=== PATIENT | female | born 1970 | race African-American/Black ===

== ENCOUNTER 2017-01-26 09:01 | Emergency (ER) | payer OTHER ==
[~2017-01-26] VITALS: Ht 162.6 cm; Wt 59.5 kg
[~2017-01-26 09:01] MED LIST: CLAR10TA13 PO; DUONI NEB; FLUT1SPR9; HIGHTAB3 PO
[2017-01-26 09:05] VITALS: BP 120/51; PULSE 58; RESP 20; TEMP 97.8; O2SAT 100
[2017-01-26] MEDS ORDERED: PRED20 PO (09:35)
[2017-01-26] MEDS ORDERED: ZITHTAB PO (09:37)
[2017-01-26] MEDS ORDERED: IBUPROFEN 800 MG TAB PO ONE (10:00)
--- NOTE | 2017-01-26 10:00 | PD ---
HPI Chief Complaint: Injury Time Seen by Provider: 09:59 Travel History International Travel<30 days: No Contact w/Intl Traveler<30days: No Traveled to known affect area: No History of Present Illness HPI 46-year-old female presents to the emergency department complaint of left foot and left ankle pain since yesterday after tripping over a weight bar on the floor. Reports edema. Denies paresthesias, loss of sensation to the affected extremity. Denies fever, vomiting. Has tried elevating and icing the affected extremity with no relief of symptoms. Is unable to ambulate on the affected extremity secondary to pain. Has not taken any medications to alleviate her symptoms. Allergies to codeine and Lortab. No other modifying factors or associated signs and symptoms. PFSH Past Medical History Anemia: Yes Asthma: Yes Diminished Hearing: No Respiratory: Yes (ASTHMA) Seizures: Yes (2 A CHILD) : 3 Para: 3 Past Surgical History Appendectomy: Yes Tonsillectomy: Yes (CHILDHOOD) Social History Alcohol Use: No Tobacco Use: Yes Substance Use: Yes (marijuana) Allergies-Medications (Allergen,Severity, Reaction): Coded Allergies: Codeine (Verified Allergy, Mild, SOB, SEIZURES, 01/26/17) PT DENIES Lortab (Verified Adverse Reaction, Intermediate, EMESIS, 01/26/17) PT DENIES Reported Meds & Prescriptions Reported Meds & Active Scripts Active Flonase Allergy Relief Ch (Fluticasone Propionate (Nasal)) 50 Mcg/Act Spr 2 [place] NA DAILY 28 Days Reported Zithromax Z-Raúl (Azithromycin) 250 Mg Dspk 250 Mg PO DIRECTED 500 MG (2 tabs) day 1, then 1 tab days 2-5. Prednisone 20 Mg Tab 20 Mg PO DIRECTED 40 MG twice a day x 3 days, then 20 MG daily x 3 days, then 10 MG daily x 3 days Ferrous Sulfate Tab 1 Tab PO TID Resp: Albuterol/Ipratropium 2.5 Mg/0.5 Mg (Albuterol/Ipratropium) 1 Amp Nebu 1 Ampule NEB Q4HR NEB PRN Review of Systems Except as stated in HPI: all other systems reviewed are Neg Physical Exam Narrative GENERAL: Well-nourished, well-developed female patient, in no acute distress SKIN: Warm and dry. HEAD: Atraumatic. Normocephalic. EYES: Pupils equal and round. No scleral icterus. No injection or drainage. ENT: Mucosa pink and moist. Airway patent. NECK: Trachea midline. CARDIOVASCULAR: Regular rate. RESPIRATORY: No accessory muscle use. GASTROINTESTINAL: Flat. MUSCULOSKELETAL: Left ankle with point tenderness to the midfoot zone with palpation; ankle is without erythema and is with mild edema; no obvious deformity. Dorsal aspect of left foot with edema and tenderness on palpation; no obvious deformity; without erythema, ecchymosis. Left lower extremity is supple and non-tense with 2+ pedal pulse and sensory intact. No obvious deformities. No clubbing. No cyanosis. No edema. NEUROLOGICAL: Awake and alert. Oriented 3. No obvious cranial nerve deficits. Motor grossly within normal limits. Normal speech. PSYCHIATRIC: Appropriate mood and affect; insight and judgment normal. Data Data Last Documented VS Vital Signs Date Time Temp Pulse Resp B/P Pulse Ox O2 Delivery O2 Flow Rate FiO2 01/26/17 09:05 97.8 58 20 120/51 100 Room Air Orders Ankle, Complete ([id number]) (01/26/17 09:50) Foot, Complete ([id number]) (01/26/17 09:50) Ice/Cold Pack (01/26/17 09:50) Ibuprofen (Motrin) (01/26/17 10:00) MDM Medical Decision Making Medical Screen Exam Complete: Yes Emergency Medical Condition: Yes Medical Record Reviewed: Yes Differential Diagnosis Foot contusion, foot fracture, ankle sprain, ankle fracture Narrative Course 46-year-old female with left foot and ankle injury. Left foot and left ankle x- ray ordered. Ibuprofen ordered. Ice pack ordered. 1056: Left ankle and left foot x-ray with no acute findings. Crutches, Fidel bandage and ankle stirrup splint provided for support. Ibuprofen prescribed for home. Patient verbalizes understanding and agreement with treatment plan. Patient is medically cleared and stable for discharge. Discussed reasons to return to the emergency department. Instructed patient to follow up with primary care provider. Patient agrees with treatment plan. The patients vital signs are stable and the patient is stable for outpatient follow-up and treatment. Patient discharged home, stable and in no acute distress. Diagnosis Primary Impression: Sprain of left foot Qualified Code: S93.602A - Sprain of left foot, initial encounter Additional Impression: Left ankle sprain Qualified Code: S93.402A - Sprain of left ankle, unspecified ligament, initial encounter Referrals: Primary Care Physician Patient Instructions: Ankle Sprain (ED), Foot Sprain (ED), General Instructions Departure Forms: Tests/Procedures, Work Release Enter return to work date: Feb 02, 2017 Additional Instructions: Ibuprofen or Tylenol as directed and as needed for pain and inflammation Rest, ice, compress, and elevate extremity to decrease pain and inflammation Ankle Brace for support Crutches for support Avoid aggravating activity; increase activity as tolerated Follow-up with primary care provider Return to the emergency department immediately with worsening symptoms Med/Other Pt SpecificInfo: Prescription(s) given Scripts Ibuprofen 800 Mg [id number] Mg PO Q6HR PRN (PAIN) #30 TAB Ref 0 Prov:Belgica Espana 01/26/17 Disposition: 01 DISCHARGE HOME Condition: Stable Belgica Espana Jan 26, 2017 10:00
--- NOTE | 2017-01-26 10:36 | RADRPT ---
EXAM DATE/TIME: 01/26/2017 10:10 [facility] COMPARISON: No previous studies available for comparison. INDICATIONS : Left foot pain after dropping weight on foot yesterday. MEDICAL HISTORY : Smoker. SURGICAL HISTORY : None. ENCOUNTER: Initial ACUITY: 2 days PAIN SCORE: 10/10 LOCATION: Left top of foot. FINDINGS: Three view examination of the left foot demonstrates no soft tissue swelling, dislocation, or fractur e. The tarsal bones appear intact. The interphalangeal and metatarsophalangeal joints are intact. The calcaneus is intact. Bony mineralization is normal. CONCLUSION: No acute disease. Jose A Seymour MD on January 26, 2017 at 10:32 Board Certified Radiologist. This report was verified electronically.
--- NOTE | 2017-01-26 10:45 | RADRPT ---
EXAM DATE/TIME: 01/26/2017 10:13 [facility] COMPARISON: No previous studies available for comparison. INDICATIONS : Left ankle pain after dropping a weight on foot yesterday. MEDICAL HISTORY : Smoker. SURGICAL HISTORY : None. ENCOUNTER: Initial ACUITY: 2 days PAIN SCORE: 10/10 LOCATION: Left top of foot. FINDINGS: Three view exam was performed of the left ankle. The bony structures are in normal alignment. No ev idence of fracture, dislocation, or soft tissue swelling. The ankle mortise is intact. No radiopaqu e foreign bodies are seen. Bony mineralization is normal. CONCLUSION: No acute disease. Jose A Seymour MD on January 26, 2017 at 10:42 Board Certified Radiologist. This report was verified electronically.
[2017-01-26] MEDS ORDERED: IBUP800T23 PO (10:59)
== END 2017-01-26 13:39 | disposition home or self-care (01) ==
LOC: NEPK 09:01
DX: S93.602A Unspecified sprain of left foot, initial encounter (principal); S93.402A Sprain of unspecified ligament of left ankle, initial encounter; F12.90 Cannabis use, unspecified, uncomplicated; W22.8XXA Striking against or struck by other objects, initial encounter; Z72.0 Tobacco use
CPT/HCPCS: 73610; 73630; 99283; E0113; L1906

== ENCOUNTER 2017-06-22 22:49 | Emergency (ER) | payer OTHER ==
[~2017-06-22] VITALS: Ht 167.6 cm; Wt 62.0 kg
[~2017-06-22 22:49] MED LIST changes: -CLAR10TA13 PO; +IBUP800T23 PO; +PRED20 PO; +ZITHTAB PO
[2017-06-22 22:50] VITALS: BP 144/70; PULSE 80; RESP 15; TEMP 99.2; O2SAT 97
[2017-06-22] MEDS ORDERED: DICL50TA3 PO (23:51)
--- NOTE | 2017-06-22 23:54 | PD ---
HPI Chief Complaint: Injury Time Seen by Provider: 23:40 Travel History International Travel<30 days: No Contact w/Intl Traveler<30days: No Traveled to known affect area: No History of Present Illness HPI 46-year-old black female presents to emergency Department with complaints of right great toenail pain. She states that she stubbed her foot on a sand bag lifting her toenail up. No other injuries. Pain is moderate. PFSH Past Medical History Anemia: Yes Asthma: Yes Diminished Hearing: No Respiratory: Yes (ASTHMA) Seizures: Yes (2 A CHILD) ?: Not LMP: 06/03/17 : 3 Para: 3 Past Surgical History Appendectomy: Yes Tonsillectomy: Yes (CHILDHOOD) Social History Alcohol Use: No Tobacco Use: Yes Substance Use: Yes (marijuana) Allergies-Medications (Allergen,Severity, Reaction): Coded Allergies: codeine (Unverified Allergy, Mild, SOB, SEIZURES, 06/22/17) PT DENIES acetaminophen (Unverified Adverse Reaction, Intermediate, EMESIS, 06/22/17) PT DENIES hydrocodone (Unverified Adverse Reaction, Intermediate, EMESIS, 06/22/17) PT DENIES Reported Meds & Prescriptions Reported Meds & Active Scripts Active Review of Systems Except as stated in HPI: all other systems reviewed are Neg Physical Exam Narrative GENERAL: This is a well-nourished, well-developed patient, in no apparent distress. SKIN: No rashes, ecchymoses or lesions. Warm and dry. HEAD: Atraumatic. Normocephalic. EYES: PERRL, EOMI, no discharge or injection. No scleral icterus. EARS: Clear NOSE: Nasal turbinates appear normal. THROAT: Mucosa pink and moist. Airway patent. NECK: Trachea midline. supple, moves head freely. LUNGS: Clear to auscultation. CV: Regular in rhythm. ABDOMEN: Soft nontender. EXT: No clubbing cyanosis or edema. Patient has elevation of the right great toenail at the distal end up off the nailbed. The base of the nail is intact. There is no signs of any deep injury. Data Data Last Documented VS Vital Signs Date Time Temp Pulse Resp B/P (MAP) Pulse Ox O2 Delivery O2 Flow Rate FiO2 06/22/17 23:06 (94) 06/22/17 22:50 99.2 80 15 97 Orders Orders Naproxen (Naprosyn) (06/23/17 00:00) MDM Medical Decision Making Medical Screen Exam Complete: Yes Emergency Medical Condition: Yes Medical Record Reviewed: Yes Differential Diagnosis MDM: High Differential diagnoses: Fracture, sprain, strain, dislocation, contusion, neurovascular injury Narrative Course The patient is given the option of placing a dressing on top of the nail versus removing the nail completely. The patient has opted not to have her nail removed and let it fall off naturally. Patient's given Naprosyn 500 mg by mouth. Dressing applied. This is right great toenail partial avulsion Diagnosis Primary Impression: right great toenail partial avulsion Patient Instructions: General Instructions Additional Instructions: Rest. Elevation. Soak in Epsom salts twice daily. Keep a Band-Aid across the nail to hold it down for the next 2 weeks. Diclofenac for pain. Follow-up with a medical doctor or a fire sprinkler fitter in 1 week Med/Other Pt SpecificInfo: Prescription(s) given Scripts Diclofenac Sodium (Diclofenac Sodium DR) 50 Mg Tabdr 50 MG PO TID, #21 TAB 0 Refills Prov: Deja Mejia MD 06/22/17 Disposition: 01 DISCHARGE HOME Condition: Stable Gil Luis Jun 22, 2017 23:54
[2017-06-23] MEDS ORDERED: NAPROXEN 500 MG TAB PO ONE
== END 2017-06-23 00:21 | disposition home or self-care (01) ==
LOC: NEPD 22:49
DX: S91.201A Unspecified open wound of right great toe with damage to nail, initial encounter (principal); D64.9 Anemia, unspecified; J45.909 Unspecified asthma, uncomplicated; W22.8XXA Striking against or struck by other objects, initial encounter; Z72.0 Tobacco use; Z88.5 Allergy status to narcotic agent; Z88.6 Allergy status to analgesic agent
CPT/HCPCS: 99283

== ENCOUNTER 2017-09-29 14:28 | Emergency (ER) | payer OTHER ==
[~2017-09-29 14:28] MED LIST changes: +DICL50TA3 PO; -DUONI NEB; -FLUT1SPR9; -HIGHTAB3 PO; -IBUP800T23 PO; -PRED20 PO; -ZITHTAB PO
[2017-09-29 14:29] VITALS: BP 120/74; PULSE 84; RESP 18; TEMP 99.3; O2SAT 98
[2017-09-29] MEDS ORDERED: IOHEXOL 350 MG/ML 10 ML VIAL (for RAD DIAG) IVCONTRAST ONE (14:29)
[2017-09-29] MEDS ORDERED: LYRI50CA PO (14:56)
[2017-09-29] MEDS ORDERED: SODIUM CHLOR 0.9% 1000 ML INJ 1,000 ML IV SCH (15:10)
[2017-09-29] MEDS ORDERED: ONDANSETRON HCL 4 MG/2 ML VIAL IVP ONE (15:15)
[2017-09-29] MEDS ORDERED: SODIUM CHLORIDE 0.9% FLUSH 10 ML FLUSH IV FLUSH PRN (15:15)
[2017-09-29] MEDS ORDERED: KETOROLAC TROMETHAMINE 30 MG/ML (IVP) VIAL IVP ONE (15:15)
[2017-09-29 15:20] VITALS: RESP 16; O2SAT 98
--- NOTE | 2017-09-29 15:20 | PD ---
HPI Chief Complaint: Cold / Flu Symptoms Time Seen by Provider: 14:40 Travel History International Travel<30 days: No Contact w/Intl Traveler<30days: No Traveled to known affect area: No History of Present Illness HPI 46-year-old female presents emergency department complaint of mid abdominal pain , low back pain, vomiting, diarrhea, subjective fever since this morning. Denies injury. Denies encopresis, incontinence, saddle anesthesias. Denies IV drug use or cancer. Denies paresthesias, loss of sensation, decreased range motion, decreased strength to all extremities. Reports feeling weak and tired. Denies nasal congestion, sore throat, ear pain, cough. Denies dysuria, hematuria, hematochezia. Denies chest pain, shortness of breath. No known relieving or aggravating factors. Has not taken any medications or tried any treatments to alleviate her symptoms. History of fibroidectomy. History of asthma and anemia. Allergies to codeine. Does not know her primary care provider's name. PFSH Past Medical History Anemia: Yes Asthma: Yes Diminished Hearing: No Respiratory: Yes (ASTHMA) Immunizations Current: Yes Seizures: Yes (2 A CHILD) Tetanus Vaccination: > 5 Years Influenza Vaccination: Yes ?: Not LMP: 09/25/17 : 3 Para: 3 Past Surgical History Appendectomy: Yes Tonsillectomy: Yes (CHILDHOOD) Social History Alcohol Use: No Tobacco Use: Yes Substance Use: Yes (marijuana) Allergies-Medications (Allergen,Severity, Reaction): Coded Allergies: codeine (Verified Allergy, Mild, SOB, SEIZURES, 09/29/17) acetaminophen (Verified Adverse Reaction, Intermediate, EMESIS, 09/29/17) hydrocodone (Verified Adverse Reaction, Intermediate, EMESIS, 09/29/17) Reported Meds & Prescriptions Reported Meds & Active Scripts Active Zofran Odt (Ondansetron Odt) 8 Mg Tab 8 Mg SL Q8H PRN Levsin-SL (Hyoscyamine Sulfate) 0.125 Mg Subl 0.25 Mg SL Q6H Macrobid (Nitrofurantoin Monoh/Nitrofur Macro) 100 Mg Cap 100 Mg PO BID Reported Lyrica (Pregabalin) 50 Mg Cap 50 Mg PO TID Review of Systems Except as stated in HPI: all other systems reviewed are Neg Physical Exam Narrative GENERAL: Well-nourished, well-developed thin black female patient, in no acute distress; afebrile SKIN: Warm and dry. HEAD: Atraumatic. Normocephalic. EYES: Pupils equal and round. No scleral icterus. No injection or drainage. ENT: Mucosa pink and moist. Airway patent. NECK: Trachea midline. CARDIOVASCULAR: Regular rate and rhythm. No murmur appreciated. RESPIRATORY: No accessory muscle use. Clear to auscultation. Breath sounds equal bilaterally. GASTROINTESTINAL: Abdomen soft, unable to determine where abdominal pain is because her pain is out of proportion on physical exam, nondistended. Hepatic and splenic margins not palpable. Bowel sounds are active 4 quadrants. Patient Guarding. BACK: Unable to determine if patient has CVA tenderness because her pain is out of proportion to physical exam. MUSCULOSKELETAL: Bilateral lower extremities supple and non-tense with 2+ pedal pulses and sensory intact; with full range of motion and 5/5 strength. Active dorsiflexion and extension of bilateral feet. Bilateral straight leg raise is negative for low back pain. Ambulatory in room with normal gait. Sitting up in bed at 90. No obvious deformities. No clubbing. No cyanosis. No edema. BACK: No midline point tenderness on palpation of the lumbar spine. No obvious deformities. NEUROLOGICAL: Awake and alert. Oriented 3. No obvious cranial nerve deficits. Motor grossly within normal limits. Normal speech. PSYCHIATRIC: Appropriate mood and affect; insight and judgment normal. Data Data Last Documented VS Vital Signs Date Time Temp Pulse Resp B/P (MAP) Pulse Ox O2 Delivery O2 Flow Rate FiO2 09/29/17 21:25 09/29/17 19:07 78 14 98 Room Air 09/29/17 16:00 97.8 Orders Orders Complete Blood Count With Diff (09/29/17 15:10) Comprehensive Metabolic Panel (09/29/17 15:10) Lipase (09/29/17 15:10) Urinalysis - C+S If Indicated (09/29/17 15:10) Ct Abd/Pel W Iv Contrast(Rout) (09/29/17 15:10) Iv Access Insert/Monitor (09/29/17 15:10) Ecg Monitoring (09/29/17 15:10) Oximetry (09/29/17 15:10) Ondansetron Inj (Zofran Inj) (09/29/17 15:15) Sodium Chlor 0.9% 1000 Ml Inj (Ns 1000 M (09/29/17 15:10) Sodium Chloride 0.9% Flush (Ns Flush) (09/29/17 15:15) Ketorolac Inj (Toradol Inj) (09/29/17 15:15) Ed Urine Pregnancytest Poc (09/29/17 15:10) Influenzae A/B Antigen (09/29/17 15:20) Urine Culture (09/29/17 15:40) Ceftriaxone Inj (Rocephin Inj) (09/29/17 16:45) Iohexol 350 Inj (Omnipaque 350 Inj) (09/29/17 14:29) Sodium Chlor 0.9% 1000 Ml Inj (Ns 1000 M (09/29/17 19:30) Prochlorperazine Inj (Compazine Inj) (09/29/17 19:30) Diphenhydramine Inj (Benadryl Inj) (09/29/17 19:30) Ed Discharge Order (09/29/17 20:41) Labs Laboratory Tests Test 09/29/17 15:20 09/29/17 15:40 White Blood Count 6.1 TH/MM3 Red Blood Count 4.90 MIL/MM3 Hemoglobin 10.5 GM/DL Hematocrit 33.7 % Mean Corpuscular Volume 68.7 FL Mean Corpuscular Hemoglobin 21.5 PG Mean Corpuscular Hemoglobin Concent 31.3 % Red Cell Distribution Width 19.3 % Platelet Count 224 TH/MM3 Mean Platelet Volume 9.5 FL Neutrophils (%) (Auto) 87.0 % Lymphocytes (%) (Auto) 7.3 % Monocytes (%) (Auto) 5.5 % Eosinophils (%) (Auto) 0.1 % Basophils (%) (Auto) 0.1 % Neutrophils # (Auto) 5.3 TH/MM3 Lymphocytes # (Auto) 0.5 TH/MM3 Monocytes # (Auto) 0.3 TH/MM3 Eosinophils # (Auto) 0.0 TH/MM3 Basophils # (Auto) 0.0 TH/MM3 CBC Comment DIFF FINAL Differential Comment Blood Urea Nitrogen 12 MG/DL Creatinine 0.58 MG/DL Random Glucose 90 MG/DL Total Protein 8.6 GM/DL Albumin 3.7 GM/DL Calcium Level 8.6 MG/DL Alkaline Phosphatase 80 U/L Aspartate Amino Transf (AST/SGOT) 9 U/L Alanine Aminotransferase (ALT/SGPT) 12 U/L Total Bilirubin 0.6 MG/DL Sodium Level 137 MEQ/L Potassium Level 3.3 MEQ/L Chloride Level 107 MEQ/L Carbon Dioxide Level 23.5 MEQ/L Anion Gap 7 MEQ/L Estimat Glomerular Filtration Rate 135 ML/MIN Lipase 61 U/L Urine Color YELLOW Urine Turbidity HAZY Urine pH 5.5 Urine Specific [place] 1.024 Urine Protein TRACE mg/dL Urine Glucose (UA) NEG mg/dL Urine Ketones 80 mg/dL Urine Occult Blood MOD Urine Nitrite POS Urine Bilirubin NEG Urine Urobilinogen LESS THAN 2.0 MG/DL Urine Leukocyte Esterase SMALL Urine RBC 3 /hpf Urine WBC 4 /hpf Urine Squamous Epithelial Cells 8 /hpf Urine Bacteria MANY /hpf Urine Mucus FEW /lpf Microscopic Urinalysis Comment CULTURE INDICATED MDM Medical Decision Making Medical Screen Exam Complete: Yes Emergency Medical Condition: Yes Medical Record Reviewed: Yes Differential Diagnosis Gastroenteritis, gastritis, pyelonephritis, UTI, influenza Narrative Course 46-year-old female with abdominal pain and low back pain since this morning. Denies injury. She's been having nausea, vomiting and diarrhea also. Patient has low-grade fever of 99.3 in the ER. Reports subjective fevers at home. Patient's pain is out of proportion on physical exam. I am unable to determine where her abdominal pain is. He has no midline tenderness on palpation of the lumbar spine. Denies IV drug use or cancer. Denies encopresis, incontinence, saddle anesthesias. Neuro exam is unremarkable. IV site, normal saline bolus, Zofran, Toradol, CT abdomen/pelvis, urinalysis, UPT, influenza ordered. 1635: CBC with anemia. She has history of anemia. Urinalysis with signs of infection; reflex to culture. Rocephin ordered. 165: Potassium 3.3. Lipase 61. Otherwise CMP unremarkable. Influenza negative 1855: CT abdomen/pelvis concludes: 1.Probable calcified uterine fibroids, the larger which measures 4.0 cm. 2. Probable endometrial thickening. 3. Mildly dilated proximal small bowel loops suggesting ileus. 1899: Randy Luis PA-C assumed patient care at this time. Report given at change of shift. See his note for final patient disposition. Diagnosis Primary Impression: UTI (urinary tract infection) Qualified Codes: N39.0 - Urinary tract infection, site not specified Additional Impression: Ileus Scripts Ondansetron Odt (Zofran Odt) 8 Mg Tab 8 MG SL Q8H Y for NAUSEA OR VOMITING, #6 TAB 0 Refills Prov: Vikram Gupta MD 09/29/17 Hyoscyamine Odt (Levsin-SL) 0.125 Mg Subl 0.25 MG SL Q6H for Gastrointestinal disorders, #20 TAB.SL 0 Refills Prov: Vikram Gupta MD 09/29/17 Nitrofurantoin Monohydrate Macrocrystals (Macrobid) 100 Mg Cap 100 MG PO BID for Infection, #20 CAP 0 Refills Prov: Vikram Gupta MD 09/29/17 [place] E[place] Sep 29, 2017 15:20
[2017-09-29 16:00] VITALS: BP 124/81; PULSE 81; RESP 16; TEMP 97.8; O2SAT 99
[2017-09-29 16:25] LABS: BACTERIA, URINE MANY /hpf; BILIRUBIN, URINE NEG (NEG); BLOOD, URINE MOD (NEG); GLUCOSE,URINE NEG (NEG); KETONE, URINE 80 mg/dL (NEG); MUCUS URINE FEW /lpf (OCC); NITRITE,URINE POS (NEG); PH, URINE 5.5 (5.0-8.5); SQUAMOUS EPITHELIAL CELL URINE 8 /hpf (0-5); URINE COLOR YELLOW (YELLW/STRAW); URINE LEUKOCYTE ESTERASE SMALL (NEG)
[2017-09-29 16:25] LABS: AUTOMATED NEUTROPHIL # 5.3 TH/MM3 (1.8-7.7); BASOPHIL % 0.1 % (0.0-2.0); EOSINOPHIL % 0.1 % (0.0-4.0); HEMATOCRIT 33.7 % (35.0-46.0); HEMOGLOBIN 10.5 GM/DL (11.6-15.3); LYMPH % 7.3 % (9.0-44.0); LYMPHOCYTE # 0.5 TH/MM3 (1.0-4.8); MEAN CELL VOLUME 68.7 FL (80.0-100.0); MEAN CORPUSCULAR HEMOGLOBIN 21.5 PG (27.0-34.0); MEAN CORPUSCULAR HGB CONC 31.3 % (32.0-36.0); MEAN PLATELET VOLUME 9.5 FL (7.0-11.0); MONO % 5.5 % (0.0-8.0); MONOCYTE # 0.3 TH/MM3 (0-0.9); PLATELET COUNT 224 TH/MM3 (150-450); RED CELL DISTRIBUTION WIDTH 19.3 % (11.6-17.2); WHITE BLOOD COUNT 6.1 TH/MM3 (4.0-11.0)
[2017-09-29] MEDS ORDERED: cefTRIAXone INJ 1,000 MG in SODIUM CHLORIDE 0.9% INJ 100 ML IV ONE (16:45)
[2017-09-29 16:50] LABS: ALBUMIN 3.7 GM/DL (3.4-5.0); ALT (GPT) 12 U/L (10-53); AST (GOT) 9 U/L (15-37); BICARBONATE 23.5 MEQ/L (21.0-32.0); BLOOD UREA NITROGEN 12 MG/DL (7-18); CALCIUM 8.6 MG/DL (8.5-10.1); CHLORIDE 107 MEQ/L (98-107); CREATININE 0.58 MG/DL (0.50-1.00); GLOMERULAR FILTRATION RATE 135 ML/MIN (>89); GLUCOSE,RANDOM 90 MG/DL (74-106); LIPASE 61 U/L (73-393); SODIUM (NA) 137 MEQ/L (136-145)
[2017-09-29 16:52] LABS: ALKALINE PHOSPHATASE 80 U/L (45-117); TOTAL BILIRUBIN ADULT 0.6 MG/DL (0.2-1.0); TOTAL PROTEIN 8.6 GM/DL (6.4-8.2)
--- NOTE | 2017-09-29 18:28 | RADRPT ---
EXAM DATE/TIME: 09/29/2017 18:00 [facility] COMPARISON: No previous studies available for comparison. INDICATIONS : Patient complains of abdominal pain, fever, nausea and vomiting. IV CONTRAST: 94 cc Omnipaque 350 (iohexol) IV ORAL CONTRAST: No oral contrast ingested. RADIATION DOSE: 7.47 CTDIvol (mGy) MEDICAL HISTORY : Seizures. SURGICAL HISTORY : Appendectomy. ENCOUNTER: Initial ACUITY: 1 day PAIN SCALE: 10/10 LOCATION: abdomen TECHNIQUE: Volumetric scanning of the abdomen and pelvis was performed. Using automated exposure control and ad justment of the mA and/or kV according to patient size, radiation dose was kept as low as reasonably achievable to obtain optimal diagnostic quality images. DICOM format image data is available electro nically for review and comparison. FINDINGS: LOWER LUNGS: The visualized lower lungs are clear. LIVER: Homogeneous density without lesion. There is no dilation of the biliary tree. No calcified gallston es. SPLEEN: Normal size without lesion. PANCREAS: Within normal limits. KIDNEYS: Normal in size and shape. There is no mass, stone or hydronephrosis. ADRENAL GLANDS: Within normal limits. VASCULAR: There is no aortic aneurysm. BOWEL/MESENTERY: There are mildly dilated loops of proximal small bowel measuring up to 3.1 cm. Mid and distal small bowel and colon are not distended. No transition in diameter identified. ABDOMINAL WALL: Within normal limits. RETROPERITONEUM: There is no lymphadenopathy. BLADDER: No wall thickening or mass. REPRODUCTIVE: The endometrium is prominent. There are 2 calcified lesions adjacent to the uterus, exophytic from t he superior fundus measuring 1.8 cm and along the right lower uterine segment measuring 4.0 cm. The calcification is peripheral and suggests exophytic uterine fibroids. No free fluid in the cul-de-sac . Mild amount of free fluid in the left adnexa. INGUINAL: There is no lymphadenopathy or hernia. MUSCULOSKELETAL: Within normal limits for patient age. CONCLUSION: 1. Probable calcified uterine fibroids, the larger which measures 4.0 cm. 2. Probable endometrial thickening. 3. Mildly dilated proximal small bowel loops suggesting ileus. Tom Vilchis MD on September 29, 2017 at 18:22 Board Certified Radiologist. This report was verified electronically.
[2017-09-29 19:06] VITALS: BP 112/55; PULSE 78; RESP 16; O2SAT 98
[2017-09-29] MEDS ORDERED: PROCHLORPERAZINE INJ 10 MG/2 ML VIAL IV PUSH ONE (19:30)
[2017-09-29] MEDS ORDERED: diphenhydrAMINE HCL 50 MG/ML VIAL IV PUSH ONE (19:30)
[2017-09-29] MEDS ORDERED: SODIUM CHLOR 0.9% 1000 ML INJ 1,000 ML IV ONE (19:30)
--- NOTE | 2017-09-29 20:34 | PD ---
Physical Exam Date Seen by Provider: Sep 29, 2017 Time Seen by Provider: 20:30 Narrative GENERAL: This is a well-nourished, well-developed patient, in no apparent distress. SKIN: No rashes, ecchymoses or lesions. Warm and dry. HEAD: Atraumatic. Normocephalic. EYES: PERRL, EOMI, no discharge or injection. No scleral icterus. EARS: Clear NOSE: Nasal turbinates appear normal. THROAT: Mucosa pink and moist. Airway patent. NECK: Trachea midline. supple, moves head freely. LUNGS: Clear to auscultation. CV: Regular in rhythm. ABDOMEN: Soft, diffuse mild abdominal discomfort to deep palpation. No guarding or rebound. EXT: No clubbing cyanosis or edema. Data Data Last Documented VS Vital Signs Date Time Temp Pulse Resp B/P (MAP) Pulse Ox O2 Delivery O2 Flow Rate FiO2 09/29/17 19:07 78 14 98 Room Air 09/29/17 19:06 112/55 (74) 09/29/17 16:00 97.8 Orders Orders Complete Blood Count With Diff (09/29/17 15:10) Comprehensive Metabolic Panel (09/29/17 15:10) Lipase (09/29/17 15:10) Urinalysis - C+S If Indicated (09/29/17 15:10) Ct Abd/Pel W Iv Contrast(Rout) (09/29/17 15:10) Iv Access Insert/Monitor (09/29/17 15:10) Ecg Monitoring (09/29/17 15:10) Oximetry (09/29/17 15:10) Ondansetron Inj (Zofran Inj) (09/29/17 15:15) Sodium Chlor 0.9% 1000 Ml Inj (Ns 1000 M (09/29/17 15:10) Sodium Chloride 0.9% Flush (Ns Flush) (09/29/17 15:15) Ketorolac Inj (Toradol Inj) (09/29/17 15:15) Ed Urine Pregnancytest Poc (09/29/17 15:10) Influenzae A/B Antigen (09/29/17 15:20) Urine Culture (09/29/17 15:40) Ceftriaxone Inj (Rocephin Inj) (09/29/17 16:45) Iohexol 350 Inj (Omnipaque 350 Inj) (09/29/17 14:29) Sodium Chlor 0.9% 1000 Ml Inj (Ns 1000 M (09/29/17 19:30) Prochlorperazine Inj (Compazine Inj) (09/29/17 19:30) Diphenhydramine Inj (Benadryl Inj) (09/29/17 19:30) Labs Laboratory Tests Test 09/29/17 15:20 09/29/17 15:40 White Blood Count 6.1 TH/MM3 Red Blood Count 4.90 MIL/MM3 Hemoglobin 10.5 GM/DL Hematocrit 33.7 % Mean Corpuscular Volume 68.7 FL Mean Corpuscular Hemoglobin 21.5 PG Mean Corpuscular Hemoglobin Concent 31.3 % Red Cell Distribution Width 19.3 % Platelet Count 224 TH/MM3 Mean Platelet Volume 9.5 FL Neutrophils (%) (Auto) 87.0 % Lymphocytes (%) (Auto) 7.3 % Monocytes (%) (Auto) 5.5 % Eosinophils (%) (Auto) 0.1 % Basophils (%) (Auto) 0.1 % Neutrophils # (Auto) 5.3 TH/MM3 Lymphocytes # (Auto) 0.5 TH/MM3 Monocytes # (Auto) 0.3 TH/MM3 Eosinophils # (Auto) 0.0 TH/MM3 Basophils # (Auto) 0.0 TH/MM3 CBC Comment DIFF FINAL Differential Comment Blood Urea Nitrogen 12 MG/DL Creatinine 0.58 MG/DL Random Glucose 90 MG/DL Total Protein 8.6 GM/DL Albumin 3.7 GM/DL Calcium Level 8.6 MG/DL Alkaline Phosphatase 80 U/L Aspartate Amino Transf (AST/SGOT) 9 U/L Alanine Aminotransferase (ALT/SGPT) 12 U/L Total Bilirubin 0.6 MG/DL Sodium Level 137 MEQ/L Potassium Level 3.3 MEQ/L Chloride Level 107 MEQ/L Carbon Dioxide Level 23.5 MEQ/L Anion Gap 7 MEQ/L Estimat Glomerular Filtration Rate 135 ML/MIN Lipase 61 U/L Urine Color YELLOW Urine Turbidity HAZY Urine pH 5.5 Urine Specific [place] 1.024 Urine Protein TRACE mg/dL Urine Glucose (UA) NEG mg/dL Urine Ketones 80 mg/dL Urine Occult Blood MOD Urine Nitrite POS Urine Bilirubin NEG Urine Urobilinogen LESS THAN 2.0 MG/DL Urine Leukocyte Esterase SMALL Urine RBC 3 /hpf Urine WBC 4 /hpf Urine Squamous Epithelial Cells 8 /hpf Urine Bacteria MANY /hpf Urine Mucus FEW /lpf Microscopic Urinalysis Comment CULTURE INDICATED MDM Medical Record Reviewed: Yes Supervised Visit with PATRICK: Yes Interpretation(s) CT of the abdomen and pelvis: Negative for appendicitis. Positive ileus. Laboratory Tests Test 09/29/17 15:20 09/29/17 15:40 White Blood Count 6.1 TH/MM3 Red Blood Count 4.90 MIL/MM3 Hemoglobin 10.5 GM/DL Hematocrit 33.7 % Mean Corpuscular Volume 68.7 FL Mean Corpuscular Hemoglobin 21.5 PG Mean Corpuscular Hemoglobin Concent 31.3 % Red Cell Distribution Width 19.3 % Platelet Count 224 TH/MM3 Mean Platelet Volume 9.5 FL Neutrophils (%) (Auto) 87.0 % Lymphocytes (%) (Auto) 7.3 % Monocytes (%) (Auto) 5.5 % Eosinophils (%) (Auto) 0.1 % Basophils (%) (Auto) 0.1 % Neutrophils # (Auto) 5.3 TH/MM3 Lymphocytes # (Auto) 0.5 TH/MM3 Monocytes # (Auto) 0.3 TH/MM3 Eosinophils # (Auto) 0.0 TH/MM3 Basophils # (Auto) 0.0 TH/MM3 CBC Comment DIFF FINAL Differential Comment Blood Urea Nitrogen 12 MG/DL Creatinine 0.58 MG/DL Random Glucose 90 MG/DL Total Protein 8.6 GM/DL Albumin 3.7 GM/DL Calcium Level 8.6 MG/DL Alkaline Phosphatase 80 U/L Aspartate Amino Transf (AST/SGOT) 9 U/L Alanine Aminotransferase (ALT/SGPT) 12 U/L Total Bilirubin 0.6 MG/DL Sodium Level 137 MEQ/L Potassium Level 3.3 MEQ/L Chloride Level 107 MEQ/L Carbon Dioxide Level 23.5 MEQ/L Anion Gap 7 MEQ/L Estimat Glomerular Filtration Rate 135 ML/MIN Lipase 61 U/L Urine Color YELLOW Urine Turbidity HAZY Urine pH 5.5 Urine Specific [place] 1.024 Urine Protein TRACE mg/dL Urine Glucose (UA) NEG mg/dL Urine Ketones 80 mg/dL Urine Occult Blood MOD Urine Nitrite POS Urine Bilirubin NEG Urine Urobilinogen LESS THAN 2.0 MG/DL Urine Leukocyte Esterase SMALL Urine RBC 3 /hpf Urine WBC 4 /hpf Urine Squamous Epithelial Cells 8 /hpf Urine Bacteria MANY /hpf Urine Mucus FEW /lpf Microscopic Urinalysis Comment CULTURE INDICATED Differential Diagnosis Differential diagnoses: SBO, ileus, gastroenteritis, vomiting, diarrhea, UTI Narrative Course IV access is obtained. Patient's given a total 2 L of normal saline. She was initially given Zofran 4 mg IV. This was followed by Benadryl 50 mg IV, Compazine 10 mg IV, and 2 Levsin subungual. Patient has had significant improvement of her discomfort. She is now taking by mouth fluids without vomiting. I discussed with the patient liquids for the next 12-24 hours and medicine for nausea and vomiting. Patient agrees with treatment plan of follow-up. At this time do not believe that the patient is requiring admission at this time. She can be followed closely as an outpatient. This is abdominal pain, ileus, UTI Diagnosis Primary Impression: UTI (urinary tract infection) Qualified Codes: N39.0 - Urinary tract infection, site not specified Additional Impressions: Ileus abdominal pain Patient Instructions: General Instructions Departure Forms: Tests/Procedures, Work Release Special Instructions: No work 2 days. Additional Instruction: Rest. Increase fluids. Clear liquids for the next 12-24 hours. Zofran for nausea. Levsin for abdominal cramping and diarrhea. Recheck in 24 hours with your primary care doctor or the ER. Return to the ER sooner if any problems. Med/Other Pt SpecificInfo: Prescription(s) given Disposition: 01 DISCHARGE HOME Condition: Stable Gil Luis Sep 29, 2017 20:34
[2017-09-29] MEDS ORDERED: ZOFR8TAB4 SL (20:36)
[2017-09-29] MEDS ORDERED: MACR100C2 PO (20:36)
[2017-09-29] MEDS ORDERED: LEVS0.124 SL (20:36)
== END 2017-09-29 21:26 | disposition home or self-care (01) ==
LOC: NEPD 14:28
DX: N39.0 Urinary tract infection, site not specified (principal); B96.20 Unspecified Escherichia coli [E. coli] as the cause of diseases classified elsewhere; K56.7 Ileus, unspecified; D64.9 Anemia, unspecified; Z72.0 Tobacco use
CPT/HCPCS: 74177; 80053; 81001; 83690; 84703; 85025; 87077; 87086; 87186; 87804; 96361; 96365; 96375; 99285; J0696; J0780; J1200; J1885; J2405; J7030; Q9967

== ENCOUNTER 2018-06-25 09:37 | Inpatient (IN) ==
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
[2018-06-25] MEDS ORDERED: Orphenadrine Inj 60 MG/2 ML Ampul IM ONE (13:12)
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
[2018-06-25] MEDS ORDERED: Morphine Inj 4 MG/ML Vial IM ONE (15:47)
[2018-06-25] MEDS ORDERED: Morphine Inj 4 MG/ML Vial IV.PUSH ONE (15:54)
[2018-06-25 16:29] LABS: Baso % (Auto) 0.6 % (0.0-2.0); Eos % (Auto) 0.6 % (0.0-4.0); Hematocrit 32.6 % (35.0-46.0); Hemoglobin 10.3 gm/dL (11.6-15.3); Lymph # (Auto) 1.6 th/mm3 (1.0-4.8); Lymph % (Auto) 36.2 % (9.0-44.0); Mean Corpuscular HGB Conc 31.6 % (32.0-36.0); Mean Corpuscular Hemoglobin 23.7 pg (27.0-34.0); Mean Platelet Volume 9.3 fL (7.0-11.0); Mono # (Auto) 0.5 th/mm3 (0.0-0.9); Mono % (Auto) 11.8 % (0.0-8.0); Neut # (Auto) 2.3 th/mm3 (1.8-7.7); Neut % (Auto) 50.8 % (16.0-70.0); Platelet Count 210 th/mm3 (150-450); Red Blood Count 4.35 mil/mm3 (4.00-5.30); Red Cell Distribution Width 17.8 % (11.6-17.2); White Blood Count 4.5 th/mm3 (4.0-11.0)
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
[2018-06-25 16:40] LABS: Activated Partial Thrombo Time 23.8 sec (24.3-30.1); Prothrombin Time 9.9 sec (9.8-11.6)
[2018-06-25 16:58] LABS: Alkaline Phosphatase 87 U/L (45-117); Total Protein 7.7 g/dL (6.4-8.2)
[2018-06-25 16:59] LABS: Alanine Aminotransferase 14 U/L (10-53); Albumin 3.2 g/dL (3.4-5.0); Anion Gap 6 meq/L (5-15); Aspartate Aminotransferase 17 U/L (15-37); Blood Urea Nitrogen 13 mg/dL (7-18); Calcium 8.3 mg/dL (8.5-10.1); Carbon Dioxide 26.9 meq/L (21.0-32.0); Chloride 109 meq/L (98-107); Glomerular Filtration Rate Greater Than 89 mL/min (>89); Glucose,Random 85 mg/dL (74-106); Potassium 3.4 meq/L (3.5-5.1); Sodium 142 meq/L (136-145)
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
[2018-06-25] MEDS ORDERED: Morphine Sulfate Inj 2 MG/ML Vial IV.PUSH PRN (19:22)
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
[2018-06-25] MEDS ORDERED: Docusate Sodium 100 MG Capsule PO SCH (21:00)
[2018-06-25] MEDS: Ketorolac Inj 30 MG/ML (IVP) Vial IV.PUSH SCH (21:05)
[2018-06-26] MEDS: Ketorolac Inj 30 MG/ML (IVP) Vial IV.PUSH SCH ×2 (03:16→08:06)
[2018-06-26] MEDS ORDERED: Chlorhexidine Gluconate 2% 1 Pack (2 Cloths) TOPICAL SCH (04:00)
[2018-06-26] MEDS ORDERED: Chlorhexidine Gluconate 2% 1 Pack (2 Cloths) TOPICAL PRN (04:00)
[2018-06-26 05:35] LABS: Baso % (Auto) 1.4 % (0.0-2.0); Eos % (Auto) 1.2 % (0.0-4.0); Hematocrit 30.1 % (35.0-46.0); Hemoglobin 9.6 gm/dL (11.6-15.3); Lymph # (Auto) 1.5 th/mm3 (1.0-4.8); Lymph % (Auto) 43.4 % (9.0-44.0); Mean Corpuscular Hemoglobin 23.6 pg (27.0-34.0); Mean Corpuscular Volume 73.9 fL (80.0-100.0); Mean Platelet Volume 9.5 fL (7.0-11.0); Mono # (Auto) 0.5 th/mm3 (0.0-0.9); Mono % (Auto) 12.7 % (0.0-8.0); Neut # (Auto) 1.5 th/mm3 (1.8-7.7); Neut % (Auto) 41.3 % (16.0-70.0); Platelet Count 190 th/mm3 (150-450); Red Blood Count 4.08 mil/mm3 (4.00-5.30); Red Cell Distribution Width 17.3 % (11.6-17.2); White Blood Count 3.6 th/mm3 (4.0-11.0)
[2018-06-26 06:11] LABS: Anion Gap 7 meq/L (5-15); Blood Urea Nitrogen 15 mg/dL (7-18); Calcium 8.2 mg/dL (8.5-10.1); Carbon Dioxide 27.3 meq/L (21.0-32.0); Chloride 107 meq/L (98-107); Glomerular Filtration Rate Greater Than 89 mL/min (>89); Glucose,Random 77 mg/dL (74-106); Potassium 3.2 meq/L (3.5-5.1); Sodium 141 meq/L (136-145)
[2018-06-26] MEDS: Senna/Docusate Sodium 8.6/50 MG Tablet PO SCH ×3 (08:07→20:59)
[2018-06-26] MEDS: Morphine Sulfate Inj 2 MG/ML Vial IV.PUSH SCH ×2 (09:28→10:00)
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
[2018-06-26] MEDS: Gabapentin 100 MG Capsule PO SCH ×2 (12:33→17:13)
[2018-06-26] MEDS: Ibuprofen 600 MG Tablet PO PRN (15:56)
[2018-06-27] MEDS: Ibuprofen 600 MG Tablet PO PRN (05:16)
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
[2018-06-27] MEDS: Gabapentin 100 MG Capsule PO SCH ×2 (08:51→11:59)
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
== END 2018-06-27 13:45 | disposition home or self-care (01) ==
LOC: NEPD 09:37 → NEDA 09:37 → N06 21:19
PROVIDERS: ADMIT Surgery Trauma Surgery; ATTEND Surgery Trauma Surgery